=== PATIENT | male | born 1955 | race Caucasian/White ===

== ENCOUNTER 2023-06-03 10:59 | Emergency (ER) | payer OTHER, SELFPAY ==
[2023-06-03 11:11] VITALS: BP 167/76
[2023-06-03 13:41] LABS: % Basophils 1.1 % (0-2); % Eosinophils 2.8 % (0-6); % Immature Granulocytes 0.2 % (0-0.5); % Lymphocytes 38.9 % (20.5-51.1); % Monocytes 8.8 % (1.7-9.3); % Neutrophils 48.2 % (42.2-75.2); Absolute Basophils 0.1 10^3/uL (0-0.2); Absolute Eosinophils 0.2 10^3/uL (0-0.7); Absolute Lymphocytes 2.4 10^3/uL (1.2-3.4); Absolute Monocytes 0.5 10^3/uL (0.1-0.6); Hematocrit 41.1 % (39.0-52.0); Hemoglobin 14.3 g/dL (13.0-18.0); Mean Corp Hgb Conc. 34.8 g/dL (33.0-37.0); Mean Corpuscular Hgb 30.3 pg (27.0-31.0); Mean Corpuscular Volume 87.1 fL (80.0-94.0); Mean Platelet Volume 11.7 fL (7.4-10.4); Nucleated Red Blood Cells % 0 % (-); Platelet Count 191 10^3/uL (130-400); Red Blood Cell Count 4.72 10^6/uL (4.70-6.10); Red Cell Dist. Width 12.9 % (11.5-14.5); White Blood Cell Count 6.2 10^3/uL (4.8-10.8)
[2023-06-03 13:55] LABS: ALT (SGPT) 20 U/L (0-50); AST (SGOT) 22 U/L (17-59); Albumin 4.1 g/dl (3.5-5.0); Alkaline Phosphatase 59 U/L (38-126); Blood Urea Nitrogen 17 mg/dl (9-20); Calcium 8.9 mg/dl (8.4-10.2); Carbon Dioxide 30 mmol/L (22-30); Chloride 106 mmol/L (98-107); Glucose 94 mg/dl (70-99); Potassium 4.4 mmol/L (3.5-5.1); Sodium 137 mmol/L (135-145); Total Bilirubin 0.7 mg/dl (0.2-1.3); Total Protein 6.6 g/dl (6.3-8.2); eGFR > 60.00
--- NOTE | 2023-06-03 14:38 | ED.GENMED ---
History of Present Illness
General
Chief Complaint: DVT/Possible Blood Clot
Source: patient
Exam Limitations: none
Time Seen by Provider: 06/03/23 12:04
Nursing documentation reviewed up to this point in time: agreed with
Travel History
Have you had any contact with someone who has COVID-19?: No
Do you have any symptoms of coronavirus? Fever > 100 degrees, chills, cough, shortness of breath, sore throat, loss of taste or smell, muscle aches, or headache?: No
History of Present Illness
History of Present Illness:
67-year-old male presenting to the emergency department today with concerns of swelling to the right inner thigh over the past couple days. Claims that there is small redness to the area denies any chest pain shortness of breath or additional
concerns. 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
Review of Systems
Review of Systems
Allergies reviewed?: Yes
All Other Systems: ROS reviewed and negative except as documented in HPI and ROS
Phy Exam
Physical Exam
Physical Exam:
GENERAL: Alert , in no apparent distress
EYE: pupils equal and reactive
NECK: Supple, no significant adenopathy.
ENT: o/p clr, mmm.
CARDIAC: Regular rate and rhythm .
LUNGS: Clear breath sounds bilaterally, no acute respiratory distress, no wheezes/rales/rhonchi
ABDOMEN: Soft, without focal tenderness, no r/g, no cvat
NEUROLOGICAL: Alert and oriented, no focal neuro deficits
SKIN: Warm and dry, skin intact.
MUSCULOSKELETAL: Small amount of redness and swelling to the right inner thigh just proximal to the knee roughly 2 x 2 cm. Mild tenderness to the area good range of motion and strength of the knee, well perfused.
PSYCH: Normal and appropriate interaction.
Course
Orders/Labs/Results
Orders:
Orders
06/03/23 12:04
Venous Doppler Lwr Ext Rt [US Periph Venous LOWER Ext RT] Urgent
Comment:
Reason For Exam: swelling
06/03/23 13:31
CBC/With Diff [Complete Blood Count/With Diff] Urgent
CMP [Comprehensive Metabolic Panel] Urgent
06/03/23 14:38
Apixaban [Eliquis] 10 mg PO ONCE ONE
Abnormal Lab Results
06/03/23
13:31
MPV 11.7 H fL
(7.4-10.4)
06/03/23 13:31
06/03/23 13:31
Vital Signs
Initial and Last Documented VS:
Initial Vital Signs
Temp Pulse Resp BP Pulse Ox
98.7 F 62 18 167/76 98
06/03/23 11:11 06/03/23 11:11 06/03/23 11:11 06/03/23 11:11 06/03/23 11:11
Last Documented Vital Signs
Temp Pulse Resp BP Pulse Ox
98.7 F 62 18 167/76 98
06/03/23 11:11 06/03/23 11:11 06/03/23 11:11 06/03/23 11:11 06/03/23 11:11
MDM/Problems Addressed
MDM/Problems Addressed:
67 old male presenting to the emergency department with concerns of redness and swelling to the right medial thigh. Worsening over the past few days. No inciting event. Does sit for long periods of time daily. Apparently does have some remote
history of blood clot previously took Coumadin but has not been on a blood thinner for multiple decades. Ultrasound was performed showing clot burden to the greater saphenous. Concerning this is symptomatic and there is additional evidence of clot
distally plan for anticoagulation and close outpatient follow-up. Return precautions given.
*Critical Care Note
Total Time (30-74mins, 75-104mins- exclusive of procedures): Not Applicable
ED Attending Note
-
Portions of this chart may have been created with voice recognition software.� Occasional wrong word or��sound alike� substitutions may have occurred due to the inherent limitations of voice recognition software.
Discharge Plan
Departure
Patient Disposition: Home (Routine Discharge)
Date of Disposition: 06/03/23
Time of Disposition: 14:38
Patient with high blood pressure during this ER visit?: No
Condition: Good
Covid-19: Not Applicable
Discharge Problem:
Venous thromboembolism (VTE)
Instructions: Deep Vein Thrombosis (Blood Clots in the Legs) (DC)
Prescriptions:
New
Eliquis DVT-PE Treat 30D Start 5 mg (74 tabs) tablets,dose pack
See Rx Instructions .ROUTE .COMPLEX Qty: 74 0RF
Rx Instructions:
orally per package directions
Referrals:
Nell Copeland, DO [Family Provider] -
Activity Restrictions/Additional Instructions:
You came to emergency department today with concerns of swelling discomfort to your right leg. You are found to have a blood clot. Please take the Eliquis as prescribed which is 10 mg twice daily for 7 days followed by 5 mg twice daily moving
forward. Please follow close with your primary care doctor for further management and reassessment. Return to the emergency department medially for any worsening, new or concerning symptoms.
Interventions
Interventions:
*Risk Screen - Suicide Last Done: 06/03/23 11:14
*General Assessment Last Done: 06/03/23 11:14
*Neglect/Abuse Screening Last Done: 06/03/23 11:14
ED- Cardiac Assessment Last Done: 06/03/23 12:16
ED-Musculoskeletal Assessment Last Done: 06/03/23 12:16
ED- Pulmonary Assessment Last Done: 06/03/23 12:16
[2023-06-03] MEDS: ELIQUIS 10 MG PO (14:43)
== END 2023-06-03 15:00 | disposition home or self-care (01) ==
LOC: EMR 10:59
PROVIDERS: Physician Assistant; EMERGENCY PHYSICIAN Emergency Medicine; FAMILY PHYSICIAN Internal Medicine
DX: I82.811 Embolism and thrombosis of superficial veins of right lower extremity (principal); M79.604 Pain in right leg; Z88.0 Allergy status to penicillin
CPT/HCPCS: 99284; 80053; 85025; 93971

== ENCOUNTER → 2024-07-19 09:00 | Outpatient (REF) | payer OTHER, SELFPAY | LOC: DHSLP 09:00 | PROVIDERS: ATTENDING PHYSICIAN Internal Medicine Critical Care Medicine | DX: G47.33 Obstructive sleep apnea (adult) (pediatric) (principal) | CPT/HCPCS: 95800 ==